=== PATIENT | female | born 2000 | race Caucasian/White ===

== ENCOUNTER 2024-07-07 17:55 | Emergency (ER) | payer OTHER ==
[2024-07-07 18:25] LABS: BASOPHILS ABSOLUTE AUTO 0.05 10^3/uL (0.00-0.10); BASOPHILS PERCENT AUTO 0.4 % (0.0-1.0); EOSINOPHILS PERCENT AUTO 0.9 % (1.0-3.0); HEMATOCRIT 34.8 % (37.0-47.0); IMMATURE GRAN ABSOLUTE AUTO 0.01 10^3/uL (0.00-0.50); IMMATURE GRAN PERCENT AUTO 0.1 % (0.0-5.0); LYMPHOCYTES ABSOLUTE AUTO 3.44 10^3/uL (1.00-4.00); LYMPHOCYTES PERCENT AUTO 30.2 % (20.0-40.0); MEAN CORPUSCULAR HEMOGLOBIN 31.7 pg (27.0-31.0); MEAN CORPUSCULAR HGB CONC 34.5 g/dL (32.0-36.0); MEAN CORPUSCULAR VOLUME 92.1 fL (82.0-92.0); MEAN PLATELET VOLUME 8.8 fL (7.4-10.4); MONOCYTES ABSOLUTE AUTO 0.72 10^3/uL (0.10-0.80); MONOCYTES PERCENT AUTO 6.3 % (2.0-8.0); NEUTROPHILS ABSOLUTE AUTO 7.08 10^3/uL (2.50-7.00); NEUTROPHILS PERCENT AUTO 62.1 % (50.0-70.0); PLATELET COUNT,PLT 234 10^3/uL (150-400); RED BLOOD CELL COUNT 3.78 10^6/uL (3.80-5.50); RED CELL DISTRIBUTION WIDTH 12.9 % (11.5-14.5)
[2024-07-07] MEDS: Sodium Chloride 0.9% 1,000 ML IV ONE (18:25)
[2024-07-07] MEDS: Ondansetron 4 MG/2 ML SDV IVPUSH ONE (18:26)
[2024-07-07] MEDS: fentaNYL 100 MCG/2 ML SDV IVPUSH ONE (18:28)
[2024-07-07 18:30] LABS: APPEARANCE,URINE SLIGHTLY CLOUDY (CLEAR); BILIRUBIN,URINE NEGATIVE (NEGATIVE); COLOR,URINE YELLOW (YELLOW); GLUCOSE,URINE NEGATIVE (NEGATIVE); KETONES,URINE NEGATIVE (NEGATIVE); LEUKOCYTE ESTERASE,URINE NEGATIVE (NEGATIVE); NITRITE,URINE NEGATIVE (NEGATIVE); OCCULT BLOOD,URINE MODERATE (NEGATIVE); PROTEIN,URINE 30 mg/dL (NEGATIVE); UROBILINOGEN,URINE 0.2 E.U./dL (0.2-1.0)
[2024-07-07 18:41] LABS: EPITHELIAL CELLS,URINE FEW /LPF; WBC,URINE 0-5 /HPF (0-5)
[2024-07-07 18:42] LABS: BACTERIA,URINE RARE /HPF (NONE TO FEW)
[2024-07-07 18:43] LABS: ALANINE AMINOTRANSFERASE,ALT 16 U/L (14-63); ALBUMIN 3.62 g/dL (3.40-5.00); ALKALINE PHOSPHATASE 64 U/L (46-116); ANION GAP 15.6 mmol/L (5-15); ASPARTATE AMNIOTRANSFERASE,AST 13 U/L (15-37); BILIRUBIN TOTAL 0.2 mg/dL (0.2-1.0); BLOOD UREA NITROGEN,BUN 9 mg/dL (7-18); CALCIUM 8.3 mg/dL (8.7-10.3); CARBON DIOXIDE,CO2 23.5 mmol/L (21.0-32.0); CHLORIDE,CL 100 mmol/L (98-107); CREATININE 0.67 mg/dL (0.51-1.17); EST CRCL DRUG DOSING (CG) 104.78 mL/min; GLUCOSE RANDOM 95 mg/dL (70-140); POTASSIUM,K 3.1 mmol/L (3.5-5.1); PROTEIN TOTAL,TP 7.3 g/dL (6.4-8.2); SODIUM,NA 136 mmol/L (136-145)
[2024-07-07 18:46] LABS: C-REACTIVE PROTEIN < 0.50 mg/dL (0.00-0.50); ESTIMATED GFR 124 mL/min (>=60)
[2024-07-07] MEDS: Acetaminophen 500 MG Tab PO ONE (19:35)
== END 2024-07-07 19:50 | disposition home or self-care (01) ==
LOC: KA.ED 17:55
DX: O26.891 Other specified pregnancy related conditions, first trimester (principal); R10.9 Unspecified abdominal pain; Z3A.12 12 weeks gestation of pregnancy; Z79.899 Other long term (current) drug therapy
CPT/HCPCS: 36415; 80053; 81001; 83605; 84702; 85025; 86140; 96361; 96374; 96375; 99284; A9270; J2405; J3010; J7030; Q3014